=== PATIENT | female | born 1985 ===

== ENCOUNTER 2018-01-26 21:10 | Emergency (ER) | payer OTHER ==
[~2018-01-26] VITALS: Ht 162.6 cm; Wt 63.5 kg
[~2018-01-26 21:10] MED LIST: BENADRYL25 MG PO; CIPRO500 MG PO; MEDROL8 MG PO; SEPTRA DS TABLE1 TAB PO
[2018-01-27] MEDS ORDERED: BACTRIM DS TAB1 EACH PO (00:23)
== END 2018-01-27 00:29 | disposition home or self-care (01) ==
LOC: ER 21:10
DX: S61.211A Laceration without foreign body of left index finger without damage to nail, initial encounter (principal); L08.9 Local infection of the skin and subcutaneous tissue, unspecified; W45.8XXA Other foreign body or object entering through skin, initial encounter; Y93.89 Activity, other specified; Y92.89 Other specified places as the place of occurrence of the external cause; Y99.8 Other external cause status